=== PATIENT | male | born 2000 | race Caucasian/White ===

== ENCOUNTER 2022-08-18 19:18 | Emergency (ER) | payer BC ==
[2022-08-18] MEDS ORDERED: Tetracaine HCl/PF 0.5% 4 ML Bottle EYEBOTH ONE (21:06)
== END 2022-08-18 21:17 | disposition home or self-care (01) ==
LOC: MW.ED 19:18
DX: S05.02XA Injury of conjunctiva and corneal abrasion without foreign body, left eye, initial encounter (principal); Z91.040 Latex allergy status; W39.XXXA Discharge of firework, initial encounter
CPT/HCPCS: 99283